=== PATIENT | female | born 1995 | race Caucasian/White ===

== ENCOUNTER → 2018-02-23 | Outpatient (CLI) | payer OTHER ==
[~2018-02-23] MED LIST: AMOCLA250S PO; AMOX250 PO; AMOX250CH PO; AMOX500 PO; AMOX50SU PO; ANTOXYBENA OT; CALCAVITD; CETI5; CHOL10002; CODACE30 PO; CODACEE120 PO; CRUTCH USE; DOXY100 PO; EPIN0.15 IM; IBS MED PO; IBUP100S PO; IBUP600 PO; LORA10ER; MEDR150I; Mobic15 MG PO; NEOCOLOTSU OT; Omeprazole20 M1 PO; PAROEX473 ML MM; PENVK250 PO; PRED10 PO; PRED20 PO; PROBIOTIC; RXCODACET PO; TYLECOD3 PO; Veetids 500500 MG PO; Verotin-Gr Cap1 EACH; [UNRECOGNIZED DRUG - REMARK]
== END ==
LOC: LAB 13:26 → LAB SHORT 13:26
DX: N76.0 Acute vaginitis (principal)
CPT/HCPCS: 87070; 87205

== ENCOUNTER 2018-08-27 09:51 | Emergency (ER) | payer OTHER ==
[~2018-08-27] VITALS: Ht 167.6 cm; Wt 59.0 kg
== END 2018-08-27 10:32 | disposition home or self-care (01) ==
LOC: ER 09:51
DX: H10.11 Acute atopic conjunctivitis, right eye (principal); J30.2 Other seasonal allergic rhinitis; F17.200 Nicotine dependence, unspecified, uncomplicated
CPT/HCPCS: 99283

== ENCOUNTER → 2018-09-07 | Outpatient (CLI) | payer OTHER | LOC: LAB UCHC 15:38 → LAB SHORT 15:38 | DX: N89.8 Other specified noninflammatory disorders of vagina (principal) | CPT/HCPCS: 87070; 87205 ==

== ENCOUNTER 2019-03-27 14:32 | Emergency (ER) | payer OTHER ==
[~2019-03-27] VITALS: Ht 167.6 cm; Wt 63.0 kg
[2019-03-27] MEDS ORDERED: Augmentin 875-1 EACH PO (14:55)
== END 2019-03-27 15:00 | disposition home or self-care (01) ==
LOC: ER 14:32
DX: H66.91 Otitis media, unspecified, right ear (principal); H60.91 Unspecified otitis externa, right ear; F17.200 Nicotine dependence, unspecified, uncomplicated
CPT/HCPCS: 99282

== ENCOUNTER → 2020-08-14 | Outpatient (CLI) | payer OTHER ==
[~2020-08-14] MED LIST changes: +Augmentin 875-1 EACH PO; +PANT20 PO
== END ==
LOC: LAB 14:37 → LAB SHORT 14:37
DX: Z36.85 Encounter for antenatal screening for Streptococcus B (principal)
CPT/HCPCS: 87081; 87150

== ENCOUNTER 2020-09-05 03:59 | Inpatient (IN) | payer OTHER ==
[~2020-09-05] VITALS: Ht 167.6 cm; Wt 80.5 kg
[~2020-09-05 03:59] MED LIST changes: -PANT20 PO
[2020-09-05] MEDS ORDERED: PANT20 PO (04:23)
[2020-09-05 04:30] LABS: BASOPHILS ABSOLUTE AUTO 0.04 K/mm3 (0.00-0.23); BASOPHILS PERCENT AUTO 0 % (0-2); EOSINOPHILS ABSOLUTE AUTO 0.04 K/mm3 (0.00-0.68); EOSINOPHILS PERCENT AUTO 0 % (0-6); Hematocrit 34.6 % (33.0-51.0); Hemoglobin 11.7 g/dL (11.5-16.0); IMMATURE GRAN ABSOLUTE AUTO 0.16 K/mm3 (0.00-0.10); IMMATURE GRAN PERCENT AUTO 2 % (0-1); LYMPHOCYTES ABSOLUTE AUTO 1.77 K/mm3 (0.84-5.20); LYMPHOCYTES PERCENT AUTO 19 % (21-46); MONOCYTES ABSOLUTE AUTO 0.94 K/mm3 (0.16-1.47); MONOCYTES PERCENT AUTO 10 % (4-13); Mean Corpuscular HGB 31.7 pg (26.0-34.0); Mean Corpuscular HGB Conc 33.8 g/dL (31.5-36.5); Mean Corpuscular Volume 94 fL (80-100); Mean Platelet Volume 11.6 fL (9.1-12.4); NEUTROPHILS ABSOLUTE AUTO 6.29 K/mm3 (1.96-9.15); NEUTROPHILS PERCENT AUTO 68 % (41-73); Platelet Count 147 K/mm3 (150-400); RDW Coefficient Variation 12.6 % (11.7-14.2); RDW Standard Deviation 43.3 fL (35.1-46.3); Red Blood Cell Count 3.69 M/mm3 (3.80-5.20); White Blood Cell Count 9.24 K/mm3 (4.00-11.30)
--- NOTE | 2020-09-05 11:23 | NUR ---
. 09/05/20 1115 pt up to bathroom with assist of RN and SO, sat on toilet, voided, towel bath and pericare done, pt stood with assist while panaties lifted to place, pivoted and sat in chair and returned to bed. Encouraged pt and SO to let RN know of any changes in her strength, motion in extremeties. When asked if her movements now are any change, she was not sure. 1130, report to [facility]
--- NOTE | 2020-09-05 13:00 | NUR ---
JARROD CNM AT BEDSIDE PLANS TO ORDER A NEURO CONSULT FOR PT, PT IS AGREEABLE TO THIS
--- NOTE | 2020-09-05 14:48 | NUR ---
TELEPHONE ORDER FROM CN TO ORDER MRI STAT FOR BRAIN AND CERVICAL SPINE, PALMA IN MRI HELPED ORDERED THE PROCEDURE, REPORTS WILL BE ABOUT [phone]. THEY WILL CALL SO WE CAN GIVE PT XANAX IV BEFORE PROCEDURE COPIED DR LESLI SHERIDAN TO THE ORDER AND RUPAL AARON FOR RADIOLOGIST TO CALL THEM WITH RESULTS.
--- NOTE | 2020-09-05 17:33 | NUR ---
TO MRI VIA WHEELCHIAR, VERSED GIVEN, TP RN GOING WITH PT WITH ADDITIONAL 5MG VERSED TO GIVE IF PT NEEDS IT. AT 1710 GOT PT UP TO BATHROOM, WALKED TO BATHROOM FROM BED UNSTEADY GAIT, NO BALANCE, PT ALMOST FELT LIKE A COUPLE TIMES THAT HER KNEES WERE GOING TO GIVE OUT. TOOK 2 PEOPLE TO GET PT TO BATHROOM.
--- NOTE | 2020-09-05 18:55 | NUR ---
continues to be over in MRI with TP rn.
[2020-09-06 05:48] LABS: Hemoglobin 10.3 g/dL (11.5-16.0); Mean Corpuscular HGB 31.7 pg (26.0-34.0); Mean Corpuscular HGB Conc 33.2 g/dL (31.5-36.5); Mean Corpuscular Volume 95 fL (80-100); Mean Platelet Volume 11.3 fL (9.1-12.4); Platelet Count 131 K/mm3 (150-400); RDW Coefficient Variation 12.7 % (11.7-14.2); RDW Standard Deviation 44.1 fL (35.1-46.3); Red Blood Cell Count 3.25 M/mm3 (3.80-5.20)
--- NOTE | 2020-09-06 09:00 | NUR ---
899 julio bashirm called for update will be in a noon to see pt, will call and update dr johnson on pt and continue with neuro consult. 904 DG nutrition intern floor will talk to PT about consult, consult was put in yesterday. 906 pt updated on baby 24hr care and aware of the consults and when julio coker willmake rounds. call light at bedside, pt encouraged to use, baby in crib. pt SO has left for an hour or so and will be back. pt is eating her breakfast
--- NOTE | 2020-09-06 09:24 | NUR ---
PT ON THEIR WAY TO SEE PT
--- NOTE | 2020-09-06 09:59 | NUR ---
PHYSICAL THERAPY IN WITH PATIENT
--- NOTE | 2020-09-06 10:34 | NUR ---
call to julio coker to request OT consult per physical therapy, left a message
--- NOTE | 2020-09-06 10:45 | NUR ---
ASSUMED CARE OF PT, PT TRANSFERRED TO RM 110. PT AND OT EVALUATION ORDERED TODAY. PT TRANSFERRED FROM TO SHOWER CHAIR VIA SLIDE BOARD.
--- NOTE | 2020-09-06 20:44 | NUR ---
DR. CARRERA FROM NEUROLOGY HERE AT CHANGE OF SHIFT FOR EVALAUATION AND TO REVIEW TEST RESULTS WITH PT. PT WAS ABLE TO AMBULATE WITH . PT HAD UNSTABLE GAIT WITH AMBULATION, OTHERWISE NEURO ASSESMENT WNL FOR NURSING ASSESMENT. PT REPORTS SLIGHTLY LESS DIZZY WITH MOVEMENT THIS SHIFT. ORTHOSTATIC BP PERFORMED.
== END 2020-09-07 12:55 | disposition home or self-care (01) | DRG 807 ==
LOC: OBS 03:59 → BC 04:05
PROVIDERS: ADMIT Registered Nurse Community Health
PROC: 10E0XZZ Delivery of Products of Conception, External Approach (ICD-10-PCS; principal; 2020-09-05)
PROC: 0HQ9XZZ Repair Perineum Skin, External Approach (ICD-10-PCS; 2020-09-05)
PROC: 3E033VJ Introduction of Other Hormone into Peripheral Vein, Percutaneous Approach (ICD-10-PCS; 2020-09-05)
DX: O99.344 Other mental disorders complicating childbirth (principal); Z37.0 Single live birth; F48.8 Other specified nonpsychotic mental disorders; O69.82X0 Labor and delivery complicated by other cord entanglement, without compression, not applicable or unspecified; O99.62 Diseases of the digestive system complicating childbirth; K21.9 Gastro-esophageal reflux disease without esophagitis; Z3A.40 40 weeks gestation of pregnancy; O70.0 First degree perineal laceration during delivery; Z87.891 Personal history of nicotine dependence; Z79.899 Other long term (current) drug therapy
CPT/HCPCS: 36415; 70553; 72156; 85025; 85027; 86850; 86900; 86901; 93306; 97110; 97116; 97163; 97530; A9270; A9579; J1885; J2210; J2590; J3360; J7120

== ENCOUNTER → 2022-04-18 | Outpatient (CLI) | payer OTHER ==
[~2022-04-18] MED LIST changes: +PANT20 PO
== END | disposition home or self-care (01) ==
LOC: LAB 13:26 → LAB SHORT 13:26
DX: N91.2 Amenorrhea, unspecified (principal)
CPT/HCPCS: 84702

== ENCOUNTER → 2022-06-26 | Outpatient (CLI) | payer OTHER | END | disposition home or self-care (01) | LOC: LAB SHORT 12:49 → LAB 12:49 | DX: E03.9 Hypothyroidism, unspecified (principal) | CPT/HCPCS: 84443 ==

== ENCOUNTER → 2022-09-16 | Outpatient (CLI) | payer OTHER ==
[2022-09-16 14:44] LABS: Hematocrit 34.1 % (33.0-51.0); Hemoglobin 11.4 g/dL (11.5-16.0)
== END | disposition home or self-care (01) ==
LOC: LAB SHORT 11:37 → LAB 11:37
PROVIDERS: Registered Nurse Community Health
DX: Z34.82 Encounter for supervision of other normal pregnancy, second trimester (principal)
CPT/HCPCS: 82950; 85014; 85018

== ENCOUNTER → 2022-10-16 | Outpatient (CLI) | payer OTHER ==
[2022-10-18 00:11] LABS: CHLAMYDIA TRACHOMATIS, NAA Negative (Negative)
== END | disposition home or self-care (01) ==
LOC: LAB 10:30 → LAB SHORT 10:30
PROVIDERS: Registered Nurse Community Health
DX: Z34.83 Encounter for supervision of other normal pregnancy, third trimester (principal); Z3A.00 Weeks of gestation of pregnancy not specified
CPT/HCPCS: 87491; 87591

== ENCOUNTER → 2022-10-30 | Outpatient (CLI) | payer OTHER | END | disposition home or self-care (01) | LOC: LAB 13:13 → LAB SHORT 13:13 | DX: E03.9 Hypothyroidism, unspecified (principal) | CPT/HCPCS: 84443 ==

== ENCOUNTER → 2022-11-17 | Outpatient (CLI) | payer OTHER | END | disposition home or self-care (01) | LOC: LAB SHORT 12:39 → LAB 12:39 | DX: Z34.83 Encounter for supervision of other normal pregnancy, third trimester (principal) | CPT/HCPCS: 87081; 87150 ==

== ENCOUNTER 2022-12-15 06:58 | Inpatient (IN) | payer OTHER ==
[2022-12-15] VITALS (14 sets, daily range): BP systolic 105–146; BP diastolic 60–76
[~2022-12-15] VITALS: Ht 165.1 cm; Wt 103.0 kg
[2022-12-15 07:58] LABS: BASOPHILS ABSOLUTE AUTO 0.04 K/mm3 (0.00-0.23); BASOPHILS PERCENT AUTO 1 % (0-2); EOSINOPHILS ABSOLUTE AUTO 0.06 K/mm3 (0.00-0.68); EOSINOPHILS PERCENT AUTO 1 % (0-6); Hematocrit 35.7 % (33.0-51.0); Hemoglobin 12.1 g/dL (11.5-16.0); IMMATURE GRAN ABSOLUTE AUTO 0.09 K/mm3 (0.00-0.10); IMMATURE GRAN PERCENT AUTO 1 % (0-1); LYMPHOCYTES PERCENT AUTO 21 % (21-46); MONOCYTES ABSOLUTE AUTO 0.82 K/mm3 (0.16-1.47); MONOCYTES PERCENT AUTO 10 % (4-13); Mean Corpuscular HGB 32.1 pg (26.0-34.0); Mean Corpuscular HGB Conc 33.9 g/dL (31.5-36.5); Mean Corpuscular Volume 95 fL (80-100); Mean Platelet Volume 11.4 fL (9.1-12.4); NEUTROPHILS ABSOLUTE AUTO 5.26 K/mm3 (1.96-9.15); NEUTROPHILS PERCENT AUTO 66 % (41-73); Platelet Count 163 K/mm3 (150-400); RDW Coefficient Variation 13.7 % (11.7-14.2); RDW Standard Deviation 47.7 fL (35.1-46.3); Red Blood Cell Count 3.77 M/mm3 (3.80-5.20); White Blood Cell Count 7.97 K/mm3 (4.00-11.30)
[2022-12-16 00:14] VITALS: BP 116/68
[2022-12-16] MEDS ORDERED: PRENATAL 19 TA1 EAC3 PO (00:27)
[2022-12-16] MEDS ORDERED: Sertraline HCl50 MG PO (00:29)
[2022-12-16] MEDS ORDERED: LEVSOD25 PO (00:30)
[2022-12-16 06:15] LABS: Hematocrit 32.7 % (33.0-51.0); Mean Corpuscular HGB 32.3 pg (26.0-34.0); Mean Corpuscular HGB Conc 33.6 g/dL (31.5-36.5); Mean Corpuscular Volume 96 fL (80-100); Mean Platelet Volume 11.1 fL (9.1-12.4); Platelet Count 148 K/mm3 (150-400); RDW Coefficient Variation 13.7 % (11.7-14.2); Red Blood Cell Count 3.41 M/mm3 (3.80-5.20); White Blood Cell Count 8.52 K/mm3 (4.00-11.30)
[2022-12-16 06:16] VITALS: BP 105/59
[2022-12-16 08:25] VITALS: BP 108/63
[2022-12-16 12:22] VITALS: BP 114/61
[2022-12-16 14:27] VITALS: BP 117/69
== END 2022-12-16 14:44 | disposition home or self-care (01) | DRG 807 ==
LOC: BC 06:58 → OBS 06:58 → BC 07:21
PROVIDERS: ADMIT Registered Nurse Community Health
PROC: 10E0XZZ Delivery of Products of Conception, External Approach (ICD-10-PCS; principal; 2022-12-15)
PROC: 0KQM0ZZ Repair Perineum Muscle, Open Approach (ICD-10-PCS; 2022-12-15)
PROC: 3E0P7VZ Introduction of Hormone into Female Reproductive, Via Natural or Artificial Opening (ICD-10-PCS; 2022-12-15)
PROC: 4A1HXCZ Monitoring of Products of Conception, Cardiac Rate, External Approach (ICD-10-PCS; 2022-12-15)
DX: O48.0 Post-term pregnancy (principal); Z37.0 Single live birth; Z3A.40 40 weeks gestation of pregnancy; O70.1 Second degree perineal laceration during delivery; O99.344 Other mental disorders complicating childbirth; F32.A Depression, unspecified; O99.284 Endocrine, nutritional and metabolic diseases complicating childbirth; E03.9 Hypothyroidism, unspecified; K58.9 Irritable bowel syndrome, unspecified; O99.62 Diseases of the digestive system complicating childbirth
CPT/HCPCS: 36415; 85025; 85027; 86850; 86900; 86901; A9270; J1885

== ENCOUNTER → 2023-01-28 | Outpatient (CLI) | payer OTHER ==
[~2023-01-28] MED LIST changes: +LEVSOD25 PO; +PRENATAL 19 TA1 EAC3 PO; +Sertraline HCl50 MG PO
== END | disposition home or self-care (01) ==
LOC: LAB 16:54 → LAB SHORT 16:54
DX: E03.9 Hypothyroidism, unspecified (principal)
CPT/HCPCS: 84443

== ENCOUNTER → 2023-03-09 | Outpatient (CLI) | payer OTHER ==
[2023-03-09 16:33] LABS: BASOPHILS ABSOLUTE AUTO 0.03 K/mm3 (0.00-0.23); BASOPHILS PERCENT AUTO 1 % (0-2); EOSINOPHILS ABSOLUTE AUTO 0.09 K/mm3 (0.00-0.68); EOSINOPHILS PERCENT AUTO 2 % (0-6); Hematocrit 39.7 % (33.0-51.0); Hemoglobin 13.3 g/dL (11.5-16.0); IMMATURE GRAN ABSOLUTE AUTO 0.02 K/mm3 (0.00-0.10); IMMATURE GRAN PERCENT AUTO 0 % (0-1); LYMPHOCYTES ABSOLUTE AUTO 1.42 K/mm3 (0.84-5.20); LYMPHOCYTES PERCENT AUTO 27 % (21-46); MONOCYTES ABSOLUTE AUTO 0.55 K/mm3 (0.16-1.47); MONOCYTES PERCENT AUTO 10 % (4-13); Mean Corpuscular HGB 31.8 pg (26.0-34.0); Mean Corpuscular HGB Conc 33.5 g/dL (31.5-36.5); Mean Corpuscular Volume 95 fL (80-100); Mean Platelet Volume 11.1 fL (9.1-12.4); NEUTROPHILS ABSOLUTE AUTO 3.18 K/mm3 (1.96-9.15); NEUTROPHILS PERCENT AUTO 60 % (41-73); Platelet Count 216 K/mm3 (150-400); RDW Coefficient Variation 12.6 % (11.7-14.2); RDW Standard Deviation 43.6 fL (35.1-46.3); Red Blood Cell Count 4.18 M/mm3 (3.80-5.20); White Blood Cell Count 5.29 K/mm3 (4.00-11.30)
[2023-03-10 12:27] LABS: Candida species (DNA Probe) Negative (NEGATIVE); G. vaginalis (DNA Probe) Negative (NEGATIVE); T. vaginalis (DNA Probe) Negative (NEGATIVE)
== END | disposition home or self-care (01) ==
LOC: LAB 13:33 → LAB SHORT 13:33
PROVIDERS: Registered Nurse Community Health
DX: Z12.4 Encounter for screening for malignant neoplasm of cervix (principal); E03.9 Hypothyroidism, unspecified; N92.0 Excessive and frequent menstruation with regular cycle
CPT/HCPCS: 84443; 85025; 87480; 87510; 87660

== ENCOUNTER 2023-03-20 08:07 | Day surgery (SDC) | payer OTHER ==
[~2023-03-20] VITALS: Ht 167.6 cm; Wt 93.5 kg
[2023-03-20] VITALS (19 sets, daily range): BP systolic 112–134; BP diastolic 67–85
[~2023-03-20 08:07] MED LIST changes: +CeFAZolin Sodium 2,000 MG in NS 50 ML IV SCH; +Lactated Ringer's 1,000 ML IV SCH; +OMEP20ER PO; +SERT100 PO
--- NOTE | 2023-03-20 09:33 | NUR ---
PT INTO PRE-OP. VSS. Surgical site prepped with 2% Chlorhexidine cloth wipe. Lungs clear T/O to Auscultation. History, Chart, Medications and Allergies reviewed before start of procedure. Patient reports completing Chlorhexadine shower X2 prior to admission to hospital. S/O at bedside.
[2023-03-20] MEDS ORDERED: Rocuronium Bromide 10 MG/ML 5ML Injection IV ONE (09:35)
[2023-03-20] MEDS ORDERED: propofoL 20 ML IV ONE (09:36)
[2023-03-20] MEDS ORDERED: FentaNYL Citrate 50 MCG/ML 5 ML Injection ONE (09:37)
[2023-03-20] MEDS ORDERED: Bupivacaine 0.5% HCl 5 MG/ML 30MLVIAL ONE (09:38)
[2023-03-20] MEDS ORDERED: Midazolam HCl 1MG / ML 2ML Vial ONE (09:38)
[2023-03-20] MEDS ORDERED: Dexamethasone Sod Phos 10 MG/ML 1ML VIAL ONE (10:09)
[2023-03-20] MEDS ORDERED: Neostigmine Methylsulfate 5MG/5ML SYR ONE (10:38)
[2023-03-20] MEDS ORDERED: Glycopyrrolate 0.2 MG/ML 5ML VIAL ONE (10:38)
[2023-03-20] MEDS ORDERED: Ondansetron HCl 2 MG / ML 2ML Vial ONE (10:38)
[2023-03-20] MEDS ORDERED: FentaNYL Citrate 50 MCG/ML 2 ML Injection IV PRN ×2 (10:40)
[2023-03-20] MEDS ORDERED: Ondansetron HCl 2 MG / ML 2ML Vial IV PRN (10:40)
[2023-03-20] MEDS ORDERED: Metoclopramide HCl 5MG / ML 2ML Vial IV PRN (10:40)
[2023-03-20] MEDS ORDERED: Albuterol 2.5 MG/3 ML VIAL INH PRN (10:40)
[2023-03-20] MEDS ORDERED: ePHEDrine Sulfate 50 MG/ML 1ML Injection IV PRN (10:40)
[2023-03-20] MEDS ORDERED: HYDROmorphone HCl/Pf 1MG SYR IV PRN (10:45)
[2023-03-20] MEDS ORDERED: LORazepam 2 MG/ML 1ML Injection IV PRN (10:45)
[2023-03-20] MEDS ORDERED: Labetalol HCL 5 MG/ML 4ML Injection (Single Dose) IV PRN (10:50)
[2023-03-20] MEDS ORDERED: FentaNYL Citrate 50 MCG/ML 2 ML Injection ONE (11:43)
[2023-03-20] MEDS ORDERED: OxyCODONE 5 mg/Acetamin 325 mg TABLET PO PRN (12:10)
--- NOTE | 2023-03-20 13:02 | NUR ---
RESUMED CARE OF PATIENT. RECEIVED REPORT FROM COLIN CORMIER RN. PATIENT C/O 05/26 CRAMPING PAIN TO LOWER ABDOME BILAT. DENIES NAUSEA. SNACKING ON PUDDING AND TAKING SIPS OF WATER.
--- NOTE | 2023-03-20 13:56 | NUR ---
DISCHARGE NOTE Patient can stand steadily and follow commands. Scant bleeding present on horace pad. No abdominal distention noted. Discharge instructions reviewed with patient. Patient verbalizes understanding. VSS. Copy given to patient to take home.Lungs clear T/O to Auscultation. Discharged via wheelchair to private car for ride home.
== END 2023-03-20 22:58 | disposition home or self-care (01) ==
LOC: ORSCMMR 08:07 → ORD 09:30 → ORSCMMR 09:30 → ORD 11:45 → ORSCMMR 11:45
PROVIDERS: Obstetrics & Gynecology
PROC: 0UT74ZZ Resection of Bilateral Fallopian Tubes, Percutaneous Endoscopic Approach (ICD-10-PCS; principal; 2023-03-20 09:30)
PROC: 0U5B8ZZ Destruction of Endometrium, Via Natural or Artificial Opening Endoscopic (ICD-10-PCS; principal; 2023-03-20 09:30)
DX: Z30.2 Encounter for sterilization (principal); Q50.5 Embryonic cyst of broad ligament; N92.1 Excessive and frequent menstruation with irregular cycle; E03.9 Hypothyroidism, unspecified; K21.9 Gastro-esophageal reflux disease without esophagitis; F41.9 Anxiety disorder, unspecified; F32.A Depression, unspecified; Z79.899 Other long term (current) drug therapy
CPT/HCPCS: 88302; 88305; A9270; J0690; J1100; J2250; J2405; J2704; J2710; J3010; J7120

== ENCOUNTER 2023-07-31 06:18 | Day surgery (SDC) | payer OTHER ==
[~2023-07-31 06:18] MED LIST changes: -CeFAZolin Sodium 2,000 MG in NS 50 ML IV SCH; +EUTHYROX88 MCG PO; -LEVSOD25 PO; -Lactated Ringer's 1,000 ML IV SCH
[2023-07-31] MEDS ORDERED: Cosyntropin 0.25 MG / ML 1ML Vial IV SCH (06:50)
[2023-07-31 08:45] VITALS: BP 130/74
[2023-07-31] MEDS ORDERED: PROTONIX4010 PO (09:26)
--- NOTE | 2023-07-31 09:55 | NUR ---
ALL LAB DRAWS (X3) DRAWN THROUGH PERIPHERAL IV SITE.
== END 2023-07-31 09:55 | disposition home or self-care (01) ==
LOC: ATC 06:18
DX: R42 Dizziness and giddiness (principal); E03.9 Hypothyroidism, unspecified; F32.A Depression, unspecified; G43.909 Migraine, unspecified, not intractable, without status migrainosus; K21.9 Gastro-esophageal reflux disease without esophagitis; Z72.0 Tobacco use
CPT/HCPCS: 80400; 82533; 96374; J0834

== ENCOUNTER → 2023-08-24 | Outpatient (CLI) | payer OTHER ==
[~2023-08-24] MED LIST changes: +PROTONIX4010 PO
== END | disposition home or self-care (01) ==
LOC: LAB SHORT 13:12 → LAB 13:12
DX: E03.9 Hypothyroidism, unspecified (principal)
CPT/HCPCS: 84443